=== PATIENT | male | born 1965 | race Caucasian/White ===

== ENCOUNTER 2024-05-03 20:52 | Emergency (ER) | payer OTHER ==
[~2024-05-03] VITALS: Ht 170.2 cm; Wt 77.1 kg
[2024-05-03 21:03] VITALS: BP_SYST 153; PULSE 89; RESP 20; TEMP 98; O2SAT 98
[2024-05-03] MEDS: KETOROLAC TROMETHAMINE 60 MG/2 ML VIAL IM ONE (23:02)
[2024-05-03 23:05] VITALS: BP_SYST 153; PULSE 89; RESP 20; TEMP 98; O2SAT 98
[2024-05-03] MEDS ORDERED: NAPR-690 PO (23:19)
[2024-05-03] MEDS ORDERED: TRAM50TA2 PO (23:19)
== END 2024-05-03 23:25 | disposition home or self-care (01) ==
LOC: SED 20:52
DX: S93.692A Other sprain of left foot, initial encounter (principal); Z79.899 Other long term (current) drug therapy; V89.2XXA Person injured in unspecified motor-vehicle accident, traffic, initial encounter; Y93.89 Activity, other specified; Y92.89 Other specified places as the place of occurrence of the external cause; Y99.8 Other external cause status
CPT/HCPCS: 99283; J1885

== ENCOUNTER 2024-05-13 00:58 | Emergency (ER) | payer OTHER ==
[~2024-05-13] VITALS: Ht 170.2 cm; Wt 77.1 kg
[~2024-05-13 00:58] MED LIST: NAPR-690 PO; TRAM50TA2 PO
[2024-05-13 01:00] VITALS: BP_SYST 147; PULSE 94; RESP 17; TEMP 98; O2SAT 98
[2024-05-13 01:38] VITALS: BP_SYST 147; PULSE 94; RESP 17; TEMP 98; O2SAT 98
== END 2024-05-13 01:39 | disposition home or self-care (01) ==
LOC: SED 00:58
DX: S90.32XA Contusion of left foot, initial encounter (principal); Z79.899 Other long term (current) drug therapy; W20.8XXA Other cause of strike by thrown, projected or falling object, initial encounter; Y93.89 Activity, other specified; Y92.89 Other specified places as the place of occurrence of the external cause; Y99.8 Other external cause status
CPT/HCPCS: 99283